=== PATIENT | male | born 1980 ===

== ENCOUNTER 2018-05-01 12:35 | Inpatient (IN) | payer OTHER, MEDICAID ==
[~2018-05-01] VITALS: Ht 182.9 cm; Wt 118.0 kg
[2018-05-01 14:12] LABS: BASOPHILS # (AUTO) 0.04 x10^3/uL (0-0.1); BASOPHILS % (AUTO) 0 % (0-1); EOSINOPHILS # (AUTO) 0.26 x10^3/uL (0-0.4); EOSINOPHILS % (AUTO) 3 % (1-7); LYMPHOCYTES # (AUTO) 2.48 x10^3/uL (1-3.4); LYMPHOCYTES % (AUTO) 26 % (22-44); MD NO; MEAN CORPUSCULAR HEMOGLOBIN 29.9 pg (27.5-34.5); MEAN CORPUSCULAR HGB CONC 34.2 g/dL (33.2-36.2); MEAN CORPUSCULAR VOLUME 87.3 fL (81-97); MEAN PLATELET VOLUME 8.3 fL (7.4-10.4); MONOCYTES # (AUTO) 1.06 x10^3/uL (0.2-0.8); MONOCYTES % (AUTO) 11 % (2-9); NEUTROPHILS # (AUTO) 5.87 x10^3/uL (1.8-6.8); NEUTROPHILS % (AUTO) 61 % (42-75); PLATELET COUNT 273 x10^3/uL (130-400); RED BLOOD COUNT 5.58 x10^6/uL (4.38-5.82)
[2018-05-01 14:14] LABS: ALANINE AMINOTRANSFERASE 168 U/L (12-78); ALBUMIN 3.5 g/dL (3.4-5.0); ANION GAP 11 mmol/L (5-15); CALCIUM 8.5 mg/dL (8.5-10.1); CHLORIDE 107 mmol/L (98-107); CREATININE 1.23 mg/dL (0.7-1.3)
[2018-05-01 14:17] LABS: ACETAMINOPHEN < 2 mcg/mL (10-30); ALKALINE PHOSPHATASE 76 U/L (45-117); BILIRUBIN,TOTAL 1.9 mg/dL (0.2-1.0); SALICYLATE LEVEL < 1.7 mg/dL (2.8-20.0); TOTAL PROTEIN 7.4 g/dL (6.4-8.2)
[2018-05-01] MEDS ORDERED: SODIUM CHLORIDE FLUSH 10ML SYR IVF PRN (15:30)
[2018-05-01] MEDS ORDERED: ONDANSETRON 2MG/ML, 2ML IVPush PRN (15:30)
[2018-05-01] MEDS ORDERED: LABETALOL 5MG/ML, 20ML IVPush PRN (15:30)
[2018-05-01] MEDS ORDERED: POLYETHYLENE GLYCOL 17 GM PACKET PO PRN (15:30)
[2018-05-01] MEDS ORDERED: LORazepam 2 MG/ML, 1ML IV PRN ×5 (15:30)
[2018-05-01] MEDS ORDERED: LORazepam 1MG TABLET PO PRN ×2 (15:30)
[2018-05-01] MEDS ORDERED: LORazepam 0.5MG TABLET PO PRN (15:30)
[2018-05-01] MEDS ORDERED: ONDANSETRON ODT 4 MG PO PRN (15:30)
[2018-05-01 20:05] VITALS: BP 153/83
[2018-05-01] MEDS: POTASSIUM CHLORIDE 20 MEQ, MAGNESIUM SULFATE 1 GM, FOLIC ACID 1 MG, THIAMINE 200 MG, MV... IV SCH (20:10)
[2018-05-01] MEDS: ENOXAPARIN 40 MG/0.4 ML SQ SCH (20:11)
[2018-05-01] MEDS: cloniDINE 0.1MG PATCH TD SCH (20:11)
[2018-05-01] MEDS: D5%-0.45% NACL 1,000 ML IV SCH (20:19)
[2018-05-02 02:16] VITALS: BP 147/82
[2018-05-02] MEDS: D5%-0.45% NACL 1,000 ML IV SCH ×2 (05:56→17:34)
[2018-05-02 06:01] LABS: BASOPHILS # (AUTO) 0.04 x10^3/uL (0-0.1); BASOPHILS % (AUTO) 0 % (0-1); EOSINOPHILS # (AUTO) 0.19 x10^3/uL (0-0.4); EOSINOPHILS % (AUTO) 2 % (1-7); LYMPHOCYTES # (AUTO) 1.93 x10^3/uL (1-3.4); LYMPHOCYTES % (AUTO) 17 % (22-44); MD NO; MEAN CORPUSCULAR HEMOGLOBIN 30.3 pg (27.5-34.5); MEAN CORPUSCULAR HGB CONC 34.1 g/dL (33.2-36.2); MEAN CORPUSCULAR VOLUME 88.9 fL (81-97); MEAN PLATELET VOLUME 8.2 fL (7.4-10.4); MONOCYTES % (AUTO) 10 % (2-9); NEUTROPHILS # (AUTO) 7.88 x10^3/uL (1.8-6.8); NEUTROPHILS % (AUTO) 71 % (42-75); PLATELET COUNT 290 x10^3/uL (130-400); RED BLOOD COUNT 5.04 x10^6/uL (4.38-5.82)
[2018-05-02 06:12] LABS: ALANINE AMINOTRANSFERASE 148 U/L (12-78); ALBUMIN 3.2 g/dL (3.4-5.0); ANION GAP 10 mmol/L (5-15); CHLORIDE 106 mmol/L (98-107); CREATININE 0.91 mg/dL (0.7-1.3)
[2018-05-02 06:14] LABS: ALKALINE PHOSPHATASE 73 U/L (45-117); BILIRUBIN,TOTAL 1.7 mg/dL (0.2-1.0); TOTAL PROTEIN 6.8 g/dL (6.4-8.2)
[2018-05-02 06:40] LABS: AMPHETAMINE SCREEN, URINE Positive (Negative); BARBITURATE SCREEN, URINE Negative (Negative); BENZODIAZEPINE SCREEN, URINE Positive (Negative); CANNABINOID SCREEN, URINE Positive (Negative); COCAINE SCREEN, URINE Negative (Negative); METHADONE SCREEN, URINE Negative (Negative); OPIATE SCREEN, URINE Positive (Negative)
[2018-05-02 07:37] VITALS: BP 131/72
[2018-05-02] MEDS: SENNA/DOCUSATE TABLET PO SCH (08:34)
[2018-05-02 13:43] VITALS: BP 114/75
[2018-05-02] MEDS: TAMSULOSIN 0.4 MG CAP.ER.24H PO SCH (17:35)
[2018-05-02] MEDS: ENOXAPARIN 40 MG/0.4 ML SQ SCH (17:35)
[2018-05-02 18:54] VITALS: BP 137/87
[2018-05-02] MEDS: POTASSIUM CHLORIDE 20 MEQ, MAGNESIUM SULFATE 1 GM, FOLIC ACID 1 MG, THIAMINE 200 MG, MV... IV SCH (21:37)
[2018-05-03 02:13] VITALS: BP 167/80
[2018-05-03] MEDS: D5%-0.45% NACL 1,000 ML IV SCH ×3 (02:30→22:30)
[2018-05-03 05:27] LABS: BASOPHILS # (AUTO) 0.03 x10^3/uL (0-0.1); BASOPHILS % (AUTO) 1 % (0-1); EOSINOPHILS # (AUTO) 0.24 x10^3/uL (0-0.4); EOSINOPHILS % (AUTO) 4 % (1-7); LYMPHOCYTES # (AUTO) 2.28 x10^3/uL (1-3.4); LYMPHOCYTES % (AUTO) 35 % (22-44); MD NO; MEAN CORPUSCULAR HEMOGLOBIN 29.9 pg (27.5-34.5); MEAN CORPUSCULAR HGB CONC 34.1 g/dL (33.2-36.2); MEAN CORPUSCULAR VOLUME 87.7 fL (81-97); MEAN PLATELET VOLUME 8.2 fL (7.4-10.4); MONOCYTES % (AUTO) 15 % (2-9); NEUTROPHILS # (AUTO) 3.03 x10^3/uL (1.8-6.8); NEUTROPHILS % (AUTO) 46 % (42-75); PLATELET COUNT 291 x10^3/uL (130-400); RED CELL DISTRIBUTION WIDTH 12.8 % (9.4-14.8)
[2018-05-03 05:33] LABS: CHLORIDE 108 mmol/L (98-107)
[2018-05-03 05:46] LABS: ALANINE AMINOTRANSFERASE 118 U/L (12-78); ALBUMIN 3.1 g/dL (3.4-5.0); ALKALINE PHOSPHATASE 69 U/L (45-117); BILIRUBIN,TOTAL 0.9 mg/dL (0.2-1.0); CALCIUM 8.1 mg/dL (8.5-10.1); TOTAL PROTEIN 6.8 g/dL (6.4-8.2)
[2018-05-03 06:17] LABS: ANION GAP 8 mmol/L (5-15)
[2018-05-03 07:50] VITALS: BP 141/87
[2018-05-03 12:23] VITALS: BP 152/93
[2018-05-03] MEDS: TAMSULOSIN 0.4 MG CAP.ER.24H PO SCH (12:55)
[2018-05-03] MEDS: SENNA/DOCUSATE TABLET PO SCH (12:56)
[2018-05-03] MEDS: ENOXAPARIN 40 MG/0.4 ML SQ SCH (18:45)
[2018-05-03 19:38] VITALS: BP 144/79
[2018-05-03] MEDS: POTASSIUM CHLORIDE 20 MEQ, MAGNESIUM SULFATE 1 GM, FOLIC ACID 1 MG, THIAMINE 200 MG, MV... IV SCH (21:05)
[2018-05-04 00:22] VITALS: BP 126/78
[2018-05-04 08:05] VITALS: BP 141/85
[2018-05-04 10:02] LABS: ALANINE AMINOTRANSFERASE 116 U/L (12-78); ALBUMIN 3.2 g/dL (3.4-5.0); ANION GAP 5 mmol/L (5-15); CHLORIDE 109 mmol/L (98-107)
[2018-05-04 10:05] LABS: ALKALINE PHOSPHATASE 70 U/L (45-117); CREATININE 0.87 mg/dL (0.7-1.3); TOTAL PROTEIN 7.1 g/dL (6.4-8.2)
[2018-05-04] MEDS: SENNA/DOCUSATE TABLET PO SCH (12:47)
[2018-05-04] MEDS: TAMSULOSIN 0.4 MG CAP.ER.24H PO SCH (12:47)
[2018-05-04] MEDS: D5%-0.45% NACL 1,000 ML IV SCH ×2 (14:02→23:15)
[2018-05-04 14:30] VITALS: BP 145/90
[2018-05-04] MEDS: ENOXAPARIN 40 MG/0.4 ML SQ SCH (17:02)
[2018-05-04 19:50] VITALS: BP 144/92
[2018-05-04] MEDS: POTASSIUM CHLORIDE 20 MEQ, MAGNESIUM SULFATE 1 GM, FOLIC ACID 1 MG, THIAMINE 200 MG, MV... IV SCH (22:17)
[2018-05-05 01:18] VITALS: BP 141/79
[2018-05-05 04:41] LABS: CHLORIDE 109 mmol/L (98-107)
[2018-05-05 04:47] LABS: ALANINE AMINOTRANSFERASE 118 U/L (12-78); ALBUMIN 3.3 g/dL (3.4-5.0); ALKALINE PHOSPHATASE 76 U/L (45-117); ANION GAP 7 mmol/L (5-15); BILIRUBIN,TOTAL 0.9 mg/dL (0.2-1.0); CALCIUM 8.8 mg/dL (8.5-10.1); CREATININE 0.92 mg/dL (0.7-1.3); TOTAL PROTEIN 7.6 g/dL (6.4-8.2)
[2018-05-05 08:30] VITALS: BP 131/69
[2018-05-05] MEDS: SENNA/DOCUSATE TABLET PO SCH (09:00)
[2018-05-05] MEDS: TAMSULOSIN 0.4 MG CAP.ER.24H PO SCH (09:00)
[2018-05-05 11:09] LABS: BASOPHILS # (AUTO) 0.03 x10^3/uL (0-0.1); BASOPHILS % (AUTO) 0 % (0-1); EOSINOPHILS # (AUTO) 0.28 x10^3/uL (0-0.4); EOSINOPHILS % (AUTO) 4 % (1-7); LYMPHOCYTES # (AUTO) 2.02 x10^3/uL (1-3.4); LYMPHOCYTES % (AUTO) 25 % (22-44); MD NO; MEAN CORPUSCULAR HEMOGLOBIN 29.4 pg (27.5-34.5); MEAN CORPUSCULAR HGB CONC 33.5 g/dL (33.2-36.2); MEAN CORPUSCULAR VOLUME 87.7 fL (81-97); MEAN PLATELET VOLUME 8.1 fL (7.4-10.4); MONOCYTES # (AUTO) 0.86 x10^3/uL (0.2-0.8); MONOCYTES % (AUTO) 11 % (2-9); NEUTROPHILS # (AUTO) 5.02 x10^3/uL (1.8-6.8); NEUTROPHILS % (AUTO) 61 % (42-75); PLATELET COUNT 338 x10^3/uL (130-400); RED BLOOD COUNT 5.76 x10^6/uL (4.38-5.82); RED CELL DISTRIBUTION WIDTH 13.2 % (9.4-14.8)
[2018-05-05 14:00] VITALS: BP 125/85
[2018-05-05] MEDS: ENOXAPARIN 40 MG/0.4 ML SQ SCH (19:17)
[2018-05-05 20:19] VITALS: BP 125/77
[2018-05-05] MEDS: POTASSIUM CHLORIDE 20 MEQ, MAGNESIUM SULFATE 1 GM, FOLIC ACID 1 MG, THIAMINE 200 MG, MV... IV SCH (21:39)
[2018-05-05] MEDS: D5%-0.45% NACL 1,000 ML IV SCH (22:01)
[2018-05-06 01:02] VITALS: BP 133/74
[2018-05-06 06:53] VITALS: BP 99/62
[2018-05-06 07:38] LABS: ALANINE AMINOTRANSFERASE 124 U/L (12-78); ALBUMIN 3.2 g/dL (3.4-5.0); ANION GAP 8 mmol/L (5-15); CALCIUM 8.6 mg/dL (8.5-10.1); CHLORIDE 109 mmol/L (98-107); CREATININE 0.99 mg/dL (0.7-1.3)
[2018-05-06 07:41] LABS: ALKALINE PHOSPHATASE 75 U/L (45-117); BILIRUBIN,TOTAL 1.2 mg/dL (0.2-1.0); TOTAL PROTEIN 7.1 g/dL (6.4-8.2)
[2018-05-06] MEDS: SENNA/DOCUSATE TABLET PO SCH (08:27)
[2018-05-06] MEDS: TAMSULOSIN 0.4 MG CAP.ER.24H PO SCH (08:27)
[2018-05-06] MEDS: LACTULOSE 20 GM/30 ML UDC PO SCH ×2 (08:27→21:00)
[2018-05-06] MEDS: D5%-0.45% NACL 1,000 ML IV SCH ×2 (08:27→20:00)
[2018-05-06 13:54] VITALS: BP 124/78
[2018-05-06] MEDS: ENOXAPARIN 40 MG/0.4 ML SQ SCH (17:56)
[2018-05-06 20:01] VITALS: BP 101/66
[2018-05-06] MEDS: POTASSIUM CHLORIDE 20 MEQ, MAGNESIUM SULFATE 1 GM, FOLIC ACID 1 MG, THIAMINE 200 MG, MV... IV SCH (21:44)
[2018-05-07 02:23] VITALS: BP 96/63
[2018-05-07 03:10] VITALS: BP 92/64
[2018-05-07 07:04] VITALS: BP 107/66
[2018-05-07] MEDS: SENNA/DOCUSATE TABLET PO SCH (09:00)
[2018-05-07] MEDS: LACTULOSE 20 GM/30 ML UDC PO SCH ×2 (09:00→21:00)
[2018-05-07] MEDS: TAMSULOSIN 0.4 MG CAP.ER.24H PO SCH (09:07)
[2018-05-07] MEDS: D5%-0.45% NACL 1,000 ML IV SCH ×2 (09:08→18:02)
[2018-05-07 09:32] LABS: ALBUMIN 3.3 g/dL (3.4-5.0); ANION GAP 7 mmol/L (5-15); CALCIUM 8.7 mg/dL (8.5-10.1); CHLORIDE 108 mmol/L (98-107)
[2018-05-07 09:35] LABS: ALANINE AMINOTRANSFERASE 135 U/L (12-78); ALKALINE PHOSPHATASE 73 U/L (45-117); CREATININE 1.01 mg/dL (0.7-1.3); TOTAL PROTEIN 7.2 g/dL (6.4-8.2)
[2018-05-07 14:23] VITALS: BP 91/53
[2018-05-07] MEDS: ENOXAPARIN 40 MG/0.4 ML SQ SCH (18:02)
[2018-05-07 19:47] VITALS: BP 106/67
[2018-05-07] MEDS: POTASSIUM CHLORIDE 20 MEQ, MAGNESIUM SULFATE 1 GM, FOLIC ACID 1 MG, THIAMINE 200 MG, MV... IV SCH (21:21)
[2018-05-08 03:27] VITALS: BP 107/69
[2018-05-08 07:02] VITALS: BP 108/67
[2018-05-08] MEDS: D5%-0.45% NACL 1,000 ML IV SCH ×2 (07:38→16:57)
[2018-05-08] MEDS: LACTULOSE 20 GM/30 ML UDC PO SCH ×2 (09:00→21:00)
[2018-05-08] MEDS: SENNA/DOCUSATE TABLET PO SCH (09:00)
[2018-05-08] MEDS: TAMSULOSIN 0.4 MG CAP.ER.24H PO SCH (09:00)
[2018-05-08 12:43] VITALS: BP 107/67
[2018-05-08] MEDS: ENOXAPARIN 40 MG/0.4 ML SQ SCH (16:57)
[2018-05-08 17:37] LABS: ANA SCREEN NEGATIVE (Negative)
[2018-05-08] MEDS: cloniDINE 0.1MG PATCH TD SCH (18:16)
[2018-05-08 20:23] VITALS: BP 129/75
[2018-05-09] MEDS: POTASSIUM CHLORIDE 20 MEQ, MAGNESIUM SULFATE 1 GM, FOLIC ACID 1 MG, THIAMINE 200 MG, MV... IV SCH (00:27)
[2018-05-09 02:18] VITALS: BP 117/76
[2018-05-09 07:00] VITALS: BP 133/78
[2018-05-09] MEDS: TAMSULOSIN 0.4 MG CAP.ER.24H PO SCH (09:00)
[2018-05-09] MEDS: LACTULOSE 20 GM/30 ML UDC PO SCH (09:00)
[2018-05-09] MEDS: SENNA/DOCUSATE TABLET PO SCH (09:00)
[2018-05-09] MEDS ORDERED: TAMS-11 PO (11:29)
[2018-05-09 12:38] VITALS: BP 120/78
== END 2018-05-09 14:01 | DRG 917 ==
LOC: ED 15:08 → EDIP 15:09 → ED 15:26 → 4WST 18:15
PROVIDERS: ADMIT Hospitalist; ATTEND Hospitalist
DX: T40.2X1A Poisoning by other opioids, accidental (unintentional), initial encounter (principal); G92 Toxic encephalopathy; F10.239 Alcohol dependence with withdrawal, unspecified; E72.20 Disorder of urea cycle metabolism, unspecified; F15.10 Other stimulant abuse, uncomplicated; I10 Essential (primary) hypertension; F11.10 Opioid abuse, uncomplicated; F13.10 Sedative, hypnotic or anxiolytic abuse, uncomplicated; F12.10 Cannabis abuse, uncomplicated; T43.621A Poisoning by amphetamines, accidental (unintentional), initial encounter; T42.4X1A Poisoning by benzodiazepines, accidental (unintentional), initial encounter; T40.7X1A Poisoning by cannabis (derivatives), accidental (unintentional), initial encounter; Y92.89 Other specified places as the place of occurrence of the external cause
CPT/HCPCS: 36415; 99285; J7121; 71045; 76700; 80053; 80307; 80329; 82140; 83735; 84100; 85025; 86038; 86704; 86705; 86706; 86707; 86803; 87340; 87350; 93005; G0378; J1650; J3411; J3475; J3480; G0480